=== PATIENT | male | born 1975 | race Hispanic/Latino ===

== ENCOUNTER 2023-08-31 23:57 | Inpatient (IN) | payer SELFPAY ==
[2023-09-01 00:39] LABS: #Monocytes 0.7 10x3/uL (0.0-1.1); #Neutrophils 4.2 10x3/uL (1.5-8.4); %Basophils 0.7 % (0.0-2.0); %Eosinophils 0.7 % (0.0-6.0); %Lymphocytes 19.2 % (18.0-47.0); %Monocytes 10.6 % (0.0-10.0); %Neutrophils 68.5 % (40.0-75.0); Hematocrit 33.9 % (38.8-50.0); Hemoglobin 11.9 g/dL (13.5-17.5); Mean Corpuscular HGB CONC 35.1 g/dL (32.0-36.0); Mean Corpuscular Hemoglobin 31.7 pg (27.0-33.0); Mean Corpuscular Volume 90.4 fl (81.2-95.1); Mean Platelet Volume 11.3 fl (7.4-10.4); Platelet Count 237 10x3/uL (150-450); RBC Distribution Width 12.1 % (11.5-14.5); Red Blood Cell (RBC) Count 3.75 10x6/uL (4.32-5.72); White Blood Cell (WBC) Count 6.1 10x3/uL (3.5-10.5)
[2023-09-01 00:43] LABS: ALT (SGPT) 14 U/L (8-55); AST (SGOT) 20 U/L (5-34); Albumin 3.7 g/dL (3.5-5.0); Alkaline Phosphatase 118 U/L (40-110); Anion Gap 14 mmol/L (10-20); BUN (Urea Nitrogen) 16 mg/dL (8.9-20.6); Bilirubin, Total 0.7 mg/dL (0.2-1.2); Calc. Creatinine Clearance 0 mL/min (70-130); Calcium 8.7 mg/dL (7.8-10.44); Carbon Dioxide 22 mmol/L (22-29); Chloride 94 mmol/L (98-107); Estimated GFR 56; Globulin 3.2 g/dL (2.4-3.5); Magnesium 2.1 mg/dL (1.6-2.6); Protein, Total 6.9 g/dL (6.0-8.3); Sodium 126 mmol/L (136-145)
[2023-09-01 00:50] LABS: Troponin I Less than 0.010 ng/mL (< 0.028)
[2023-09-01 01:05] LABS: Bilirubin Neg (Negative); Blood, Urine Negative (Negative); Clarity Clear (Clear); Glucose, Urine (Dipstick) >=1000 mg/dL (Negative); Ketone, Urine 5 mg/dL (Negative); Leukocyte Negative (Negative); Nitrite Negative (Negative); Protein, Urine (Dipstick) 30 mg/dl (Neg-Trace); Specific Gravity, Urine 1.005 (1.005-1.030); Urobilinogen Normal mg/dL (Less than 2)
[2023-09-01 01:08] LABS: Glucose 933 mg/dL (70-105)
[2023-09-01 01:18] LABS: Bacteria/HPF None Seen HPF (None Seen); CAUTI Indications for Culture Alt mental st,lethar; RBC/HPF None Seen HPF (0-3); Squamous Epithelial None Seen HPF (0-3); WBC/HPF None Seen HPF (0-3)
[2023-09-01 01:20] LABS: Urine Culture Reflex No No
[2023-09-01 01:21] LABS: Actual Bicarbonate (HCO3v) 23.1 mEq/L (22-28); Analyzer IN Cardio CS ER; Base Excess -1.8 mEq/L (-2 - +2); Calcium, Ionized (venous) 1.09 mmol/L (1.16-1.32); Chloride (VBG) 100 mmol/L (98-106); Hematocrit-VBG 32 % (42.0-52.0); Potassium (VBG) 3.81 mmol/L (3.70-5.30); Puncture Site Other Site; RapidComm Collect By CBN; Sodium 134 mmol/L (133-146); pH (venous) 7.383 (7.32-7.43)
[2023-09-01] MEDS ORDERED: Insulin Regular 300 UNITS/3 ML VIAL ONE (01:33)
[2023-09-01] MEDS ORDERED: Labetalol HCl 100 MG/20 ML VIAL ONE (01:33)
[2023-09-01] MEDS ORDERED: Senokot S 8.6-50 MG TAB PO PRN (02:23)
[2023-09-01] MEDS ORDERED: Calcium Carbonate 500 MG ChewTAB PO PRN (02:23)
[2023-09-01] MEDS ORDERED: Ondansetron PF 4 MG/2 ML Vial IVP PRN (02:23)
[2023-09-01] MEDS ORDERED: Ondansetron ODT 4 MG TAB PO PRN (02:23)
[2023-09-01] MEDS ORDERED: INSULIN REGULAR IN 0.9 % NACL 100 UNITS/100 ML BAG ONE (02:29)
[2023-09-01] MEDS: INSULIN REGULAR IN 0.9 % NACL 100 UNITS in Premix 1 BAG IVPB SCH (04:15)
[2023-09-01 04:23] VITALS: BMI 21.9
[2023-09-01] MEDS: Potassium Chloride 20 MEQ in Lactated Ringer's 1,000 ML IV SCH ×2 (04:29→05:28)
[2023-09-01 05:00] LABS: Anion Gap 13 mmol/L (10-20); BUN (Urea Nitrogen) 13 mg/dL (8.9-20.6); Calc. Creatinine Clearance 66 mL/min (70-130); Calcium 8.7 mg/dL (7.8-10.44); Carbon Dioxide 23 mmol/L (22-29); Chloride 107 mmol/L (98-107); Estimated GFR 88; Glucose 324 mg/dL (70-105); Sodium 140 mmol/L (136-145)
[2023-09-01 05:03] LABS: Cardiac Risk 8.4 (Less than 4.5); Cholesterol 202 mg/dl (< 200 Desired); HDL Cholesterol 24 mg/dL (>60 Neg Risk)
[2023-09-01] MEDS: Potassium Chloride 20 MEQ in Premix 1 BAG IVPB SCH (05:28)
[2023-09-01 06:13] LABS: Triglycerides 459 mg/dL (Less than 150)
[2023-09-01] MEDS ORDERED: Dextrose 50% Abboject 50 ML SYRINGE SLOW IVP PRN (06:30)
[2023-09-01] MEDS ORDERED: Glucagon 1 MG/ML KIT IM PRN (06:30)
[2023-09-01] MEDS ORDERED: Dextrose 5% in Water 1,000 ML IV PRN (06:30)
[2023-09-01 08:21] LABS: Amphetamine Not Detected (NotDetected); Barbiturates Screen Not Detected (NotDetected); Benzodiazepine Screen Not Detected (NotDetected); Cocaine Metabolite Screen Not Detected (NotDetected); Methadone Not Detected (NotDetected); Methamphetamine Not Detected (NotDetected); Opiate Screen Not Detected (NotDetected); Oxycodone Screen Not Detected (NotDetected); Phencyclidine (PCP) Not Detected (NotDetected); THC/Cannabinoid Screen Not Detected (NotDetected); Tricyclic Screen Not Detected (NotDetected)
[2023-09-01] MEDS: Pantoprazole 40 MG VIAL IVP SCH (08:33)
[2023-09-01] MEDS: 1/2 NS w/Potassium 20 mEq 1,000 ML IV SCH (08:34)
[2023-09-01] MEDS: Enoxaparin 40 MG (0.4 mL) SYRINGE SC SCH (08:35)
[2023-09-01 08:56] LABS: Anion Gap 14 mmol/L (10-20); BUN (Urea Nitrogen) 13 mg/dL (8.9-20.6); Calc. Creatinine Clearance 84 mL/min (70-130); Calcium 8.6 mg/dL (7.8-10.44); Carbon Dioxide 21 mmol/L (22-29); Chloride 110 mmol/L (98-107); Estimated GFR 108; Glucose 90 mg/dL (70-105); Potassium 3.6 mmol/L (3.5-5.1); Sodium 141 mmol/L (136-145)
[2023-09-01] MEDS ORDERED: Insulin NPH Human Isophane 100 UNITS/ML (10 ML VIAL) SC SCH (09:00)
[2023-09-01] MEDS: Insulin NPH Human Isophane 100 UNITS/ML (10 ML VIAL) SC SCH ×2 (09:05→16:54)
[2023-09-01] MEDS: Insulin Regular 300 UNITS/3 ML VIAL SC PRN (09:06)
[2023-09-01 09:46] LABS: Magnesium 1.8 mg/dL (1.6-2.6); Phosphorus 2.5 mg/dL (2.3-4.7)
[2023-09-01] MEDS: Lantus 1000 UNITS/10 ML VIAL SC SCH (12:43)
[2023-09-01] MEDS: FLU VACC QS2023-24(6MOS UP)/PF 60 MCG/0.5 ML SYRINGE IM ONE ×2 (12:46→12:49)
[2023-09-01] MEDS: Labetalol HCl 100 MG/20 ML VIAL SLOW IVP PRN (17:45)
[2023-09-01] MEDS: Lisinopril 10 MG TAB PO SCH (23:41)
[2023-09-01] MEDS: Amlodipine 10 MG TAB PO SCH (23:41)
[2023-09-02 08:25] LABS: Anion Gap 14 mmol/L (10-20); BUN (Urea Nitrogen) 10 mg/dL (8.9-20.6); Calc. Creatinine Clearance 76 mL/min (70-130); Calcium 8.7 mg/dL (7.8-10.44); Carbon Dioxide 22 mmol/L (22-29); Chloride 103 mmol/L (98-107); Estimated GFR 103; Glucose 274 mg/dL (70-105); Potassium 3.8 mmol/L (3.5-5.1); Sodium 135 mmol/L (136-145)
[2023-09-02] MEDS: glipiZIDE 5 MG TAB PO SCH (08:25)
[2023-09-02] MEDS: Lisinopril 10 MG TAB PO SCH (08:25)
[2023-09-02] MEDS: Enoxaparin 30 MG (0.3 mL) SYRINGE SC SCH (08:26)
[2023-09-02 17:12] VITALS: BP 122/85; TEMP 99.6
[2023-09-02] MEDS ORDERED: Amlodipine 10 MG TAB PO SCH (21:00)
== END 2023-09-02 18:32 | disposition home or self-care (01) | DRG 638 ==
LOC: CSHERS 23:57 → CSHERHOLD 09-01 01:53 → CSHIMCU 09-01 04:12 → CSHTELE 09-02 06:34
PROVIDERS: ADMIT Family Medicine; ATTEND Hospitalist
PROC: 2W3EX1Z Immobilization of Right Hand using Splint (ICD-10-PCS; principal; 2023-09-01)
DX: E11.10 Type 2 diabetes mellitus with ketoacidosis without coma (principal); S52.91XA Unspecified fracture of right forearm, initial encounter for closed fracture; I10 Essential (primary) hypertension; E11.42 Type 2 diabetes mellitus with diabetic polyneuropathy; W19.XXXA Unspecified fall, initial encounter; Z79.84 Long term (current) use of oral hypoglycemic drugs; Z79.899 Other long term (current) drug therapy
CPT/HCPCS: 25600; 36415; 36416; 80048; 80053; 80061; 80306; 81001; 82010; 82805; 83735; 84100; 84484; 85025; 90471; 90686; 93005; 96361; 96374; 96375; 96376; C9113; G0008; J1650; J1815; J3480; J7120

== ENCOUNTER 2023-10-05 23:30 | Inpatient (IN) | payer SELFPAY ==
[2023-10-06 00:18] LABS: #Basophils 0.03 10x3/uL (0.0-0.2); #Eosinphils 0.03 10x3/uL (0.0-0.5); #Monocytes 0.97 10x3/uL (0.0-1.1); #Neutrophils 7.48 10x3/uL (1.5-8.4); %Basophils 0.3 % (0.0-2.0); %Eosinophils 0.3 % (0.0-6.0); %Monocytes 10.1 % (0.0-10.0); %Neutrophils 77.6 % (40.0-75.0); Hematocrit 32.3 % (38.8-50.0); Hemoglobin 11.5 g/dL (13.5-17.5); Mean Corpuscular HGB CONC 35.6 g/dL (32.0-36.0); Mean Corpuscular Hemoglobin 31.7 pg (27.0-33.0); Mean Platelet Volume 11.5 fl (7.4-10.4); Platelet Count 282 10x3/uL (150-450); RBC Distribution Width 11.8 % (11.5-14.5); Red Blood Cell (RBC) Count 3.63 10x6/uL (4.32-5.72); White Blood Cell (WBC) Count 9.6 10x3/uL (3.5-10.5)
[2023-10-06 00:23] LABS: ALT (SGPT) 7 U/L (8-55); AST (SGOT) 11 U/L (5-34); Alkaline Phosphatase 84 U/L (40-110); Anion Gap 14 mmol/L (10-20); BUN (Urea Nitrogen) 30 mg/dL (8.9-20.6); Bilirubin, Total 0.3 mg/dL (0.2-1.2); Calc. Creatinine Clearance 0 mL/min (70-130); Calcium 8.3 mg/dL (7.8-10.44); Carbon Dioxide 19 mmol/L (22-29); Chloride 98 mmol/L (98-107); Estimated GFR 46; Globulin 2.7 g/dL (2.4-3.5); Lipase 70 U/L (8-78); Potassium 4.4 mmol/L (3.5-5.1); Protein, Total 5.7 g/dL (6.0-8.3); Sodium 127 mmol/L (136-145)
[2023-10-06 00:27] LABS: Troponin I Less than 0.010 ng/mL (< 0.028)
[2023-10-06 00:32] LABS: Critical Call Chemistry @NUR.PW2 0031; Glucose 823 mg/dL (70-105)
[2023-10-06 00:38] LABS: Actual Bicarbonate (HCO3v) 19.8 mEq/L (22-28); Analyzer IN Cardio CS ER; Base Excess -5.1 mEq/L (-2 - +2); Calcium, Ionized (venous) 1.14 mmol/L (1.16-1.32); Chloride (VBG) 96 mmol/L (98-106); Hematocrit-VBG 37 % (42.0-52.0); Hemoglobin (Hb) 12.5 g/dL (13.1-17.2); Potassium (VBG) 4.27 mmol/L (3.70-5.30); Puncture Site Other Site; pH (venous) 7.353 (7.32-7.43)
[2023-10-06 00:58] LABS: Bilirubin Neg (Negative); Blood, Urine Negative (Negative); Clarity Clear (Clear); Glucose, Urine (Dipstick) >=1000 mg/dL (Negative); Ketone, Urine 5 mg/dL (Negative); Leukocyte Negative (Negative); Nitrite Negative (Negative); Protein, Urine (Dipstick) Negative (Neg-Trace); Specific Gravity, Urine 1.005 (1.005-1.030); Urobilinogen Normal mg/dL (Less than 2); pH, Urine 6.5 (5.0-9.0)
[2023-10-06 01:11] LABS: Bacteria/HPF 2+ HPF (None Seen); CAUTI Indications for Culture Alt mental st,lethar; RBC/HPF 0-3 HPF (0-3); Squamous Epithelial None Seen HPF (0-3); WBC/HPF None Seen HPF (0-3)
[2023-10-06 01:12] LABS: Urine Culture Reflex No No
[2023-10-06 02:23] LABS: Anion Gap 13 mmol/L (10-20); BUN (Urea Nitrogen) 27 mg/dL (8.9-20.6); Calc. Creatinine Clearance 0 mL/min (70-130); Calcium 8.5 mg/dL (7.8-10.44); Carbon Dioxide 19 mmol/L (22-29); Chloride 103 mmol/L (98-107); Estimated GFR 60; Potassium 4.3 mmol/L (3.5-5.1); Sodium 131 mmol/L (136-145)
[2023-10-06 02:26] LABS: Critical Call Chemistry NUR.PW2@0225; Glucose 637 mg/dL (70-105)
[2023-10-06 03:06] LABS: Lactic Acid 3.1 mmol/L (0.5-2.2)
[2023-10-06 05:46] LABS: Cardiac Risk 9.4 (Less than 4.5); Cholesterol 235 mg/dl (< 200 Desired); HDL Cholesterol 25 mg/dL (>60 Neg Risk); LDL Cholesterol, Calculated 147 mg/dL; Magnesium 1.6 mg/dL (1.6-2.6); Phosphorus 3.3 mg/dL (2.3-4.7); Triglycerides 314 mg/dL (Less than 150)
[2023-10-06 05:48] LABS: Anion Gap 11 mmol/L (10-20); BUN (Urea Nitrogen) 24 mg/dL (8.9-20.6); Calc. Creatinine Clearance 0 mL/min (70-130); Calcium 8.4 mg/dL (7.8-10.44); Carbon Dioxide 22 mmol/L (22-29); Chloride 107 mmol/L (98-107); Estimated GFR 84; Glucose 391 mg/dL (70-105); Potassium 4.1 mmol/L (3.5-5.1); Sodium 136 mmol/L (136-145)
[2023-10-06 06:04] LABS: Syphilis Antibody Nonreactive (Nonreactive); Syphilis Antibody Index 0.04 S/CO (<1.00 Non-Reactive)
[2023-10-06 06:05] LABS: HIV (1/2) Antibody/Antigen Non-Reactive (NonReactive)
[2023-10-06 07:18] VITALS: BMI 29.0
[2023-10-06 08:16] LABS: Amphetamine Not Detected (NotDetected); Barbiturates Screen Not Detected (NotDetected); Benzodiazepine Screen Not Detected (NotDetected); Cocaine Metabolite Screen Not Detected (NotDetected); Methadone Not Detected (NotDetected); Methamphetamine Not Detected (NotDetected); Opiate Screen Not Detected (NotDetected); Oxycodone Screen Not Detected (NotDetected); Phencyclidine (PCP) Not Detected (NotDetected); THC/Cannabinoid Screen Not Detected (NotDetected); Tricyclic Screen Not Detected (NotDetected)
[2023-10-06 13:38] LABS: Hemoglobin A1c Greater than 14.0 % (4.0-6.0)
[2023-10-10 05:01] LABS: #Basophils 0.03 10x3/uL (0.0-0.2); #Eosinphils 0.08 10x3/uL (0.0-0.5); #Monocytes 0.61 10x3/uL (0.0-1.1); #Neutrophils 4.45 10x3/uL (1.5-8.4); %Basophils 0.4 % (0.0-2.0); %Eosinophils 1.1 % (0.0-6.0); %Lymphocytes 27.8 % (18.0-47.0); %Monocytes 8.5 % (0.0-10.0); %Neutrophils 61.8 % (40.0-75.0); Hematocrit 33.7 % (38.8-50.0); Hemoglobin 12.1 g/dL (13.5-17.5); Mean Corpuscular HGB CONC 35.9 g/dL (32.0-36.0); Mean Corpuscular Hemoglobin 32.3 pg (27.0-33.0); Mean Corpuscular Volume 89.9 fl (81.2-95.1); Mean Platelet Volume 11.2 fl (7.4-10.4); Platelet Count 297 10x3/uL (150-450); RBC Distribution Width 11.4 % (11.5-14.5); Red Blood Cell (RBC) Count 3.75 10x6/uL (4.32-5.72); White Blood Cell (WBC) Count 7.2 10x3/uL (3.5-10.5)
[2023-10-10 05:11] LABS: Anion Gap 11 mmol/L (10-20); BUN (Urea Nitrogen) 19 mg/dL (8.9-20.6); Calc. Creatinine Clearance 85 mL/min (70-130); Calcium 9.4 mg/dL (7.8-10.44); Carbon Dioxide 24 mmol/L (22-29); Chloride 106 mmol/L (98-107); Estimated GFR 107; Glucose 241 mg/dL (70-105); Potassium 4.4 mmol/L (3.5-5.1); Sodium 137 mmol/L (136-145)
[2023-10-27 04:34] LABS: Anion Gap 13 mmol/L (10-20); BUN (Urea Nitrogen) 25 mg/dL (8.9-20.6); Calc. Creatinine Clearance 101 mL/min (70-130); Carbon Dioxide 22 mmol/L (22-29); Chloride 104 mmol/L (98-107); Estimated GFR 113; Glucose 83 mg/dL (70-105); Potassium 4.4 mmol/L (3.5-5.1); Sodium 135 mmol/L (136-145)
[2023-10-29 05:26] LABS: #Basophils 0.07 10x3/uL (0.0-0.2); #Eosinphils 0.38 10x3/uL (0.0-0.5); #Neutrophils 6.75 10x3/uL (1.5-8.4); %Basophils 0.7 % (0.0-2.0); %Eosinophils 3.7 % (0.0-6.0); %Lymphocytes 20.9 % (18.0-47.0); %Monocytes 7.9 % (0.0-10.0); %Neutrophils 66.2 % (40.0-75.0); Hematocrit 34.3 % (38.8-50.0); Hemoglobin 12.4 g/dL (13.5-17.5); Mean Corpuscular HGB CONC 36.2 g/dL (32.0-36.0); Mean Corpuscular Hemoglobin 31.7 pg (27.0-33.0); Mean Corpuscular Volume 87.7 fl (81.2-95.1); Mean Platelet Volume 9.6 fl (7.4-10.4); Platelet Count 257 10x3/uL (150-450); RBC Distribution Width 11.7 % (11.5-14.5); Red Blood Cell (RBC) Count 3.91 10x6/uL (4.32-5.72); White Blood Cell (WBC) Count 10.2 10x3/uL (3.5-10.5)
[2023-10-29 05:36] LABS: Anion Gap 14 mmol/L (10-20); BUN (Urea Nitrogen) 21 mg/dL (8.9-20.6); Calc. Creatinine Clearance 98 mL/min (70-130); Calcium 9.4 mg/dL (7.8-10.44); Carbon Dioxide 24 mmol/L (22-29); Chloride 103 mmol/L (98-107); Estimated GFR 112; Glucose 130 mg/dL (70-105); Potassium 4.5 mmol/L (3.5-5.1); Sodium 136 mmol/L (136-145)
[2023-11-04 14:23] LABS: #Basophils 0.09 10x3/uL (0.0-0.2); #Eosinphils 0.16 10x3/uL (0.0-0.5); #Monocytes 0.89 10x3/uL (0.0-1.1); #Neutrophils 5.92 10x3/uL (1.5-8.4); %Basophils 0.9 % (0.0-2.0); %Eosinophils 1.7 % (0.0-6.0); %Monocytes 9.4 % (0.0-10.0); %Neutrophils 62.4 % (40.0-75.0); Hematocrit 35.4 % (38.8-50.0); Hemoglobin 12.7 g/dL (13.5-17.5); Mean Corpuscular HGB CONC 35.9 g/dL (32.0-36.0); Mean Corpuscular Volume 86.3 fl (81.2-95.1); Mean Platelet Volume 9.2 fl (7.4-10.4); Platelet Count 289 10x3/uL (150-450); RBC Distribution Width 11.5 % (11.5-14.5); White Blood Cell (WBC) Count 9.5 10x3/uL (3.5-10.5)
[2023-11-04 14:35] LABS: Anion Gap 14 mmol/L (10-20); BUN (Urea Nitrogen) 26 mg/dL (8.9-20.6); Calc. Creatinine Clearance 88 mL/min (70-130); Calcium 9.5 mg/dL (7.8-10.44); Carbon Dioxide 24 mmol/L (22-29); Chloride 101 mmol/L (98-107); Estimated GFR 108; Glucose 84 mg/dL (70-105); Potassium 4.6 mmol/L (3.5-5.1); Sodium 134 mmol/L (136-145)
[2023-11-05 04:32] VITALS: BP 117/74; TEMP 98.1
== END 2023-11-05 04:30 | disposition home or self-care (01) | DRG 64 ==
LOC: CSHERS 23:30 → CSHERHOLD 10-06 03:25 → CSHTELE 10-06 07:08
PROVIDERS: ADMIT Family Medicine; ATTEND Family Medicine
DX: I63.9 Cerebral infarction, unspecified (principal); E11.00 Type 2 diabetes mellitus with hyperosmolarity without nonketotic hyperglycemic-hyperosmolar coma (NKHHC); Z59.00 Homelessness unspecified; E11.65 Type 2 diabetes mellitus with hyperglycemia; E11.42 Type 2 diabetes mellitus with diabetic polyneuropathy; I10 Essential (primary) hypertension; B35.9 Dermatophytosis, unspecified; G25.5 Other chorea; Z83.3 Family history of diabetes mellitus; Z79.899 Other long term (current) drug therapy; Z79.84 Long term (current) use of oral hypoglycemic drugs
CPT/HCPCS: 36415; 36416; 70450; 70496; 70498; 70551; 80048; 80053; 80061; 80306; 81001; 82010; 82805; 83036; 83605; 83690; 83735; 84100; 84484; 85025; 86780; 87389; 93005; 93306; 96365; 96366; 96367; 96376; J1650; J1815; J3480; J7120; Q9967